=== PATIENT | female | born 1940 | race Caucasian/White ===

== ENCOUNTER 2016-06-22 07:44 | Outpatient (CLI) | payer MEDICARE, OTHER | END 2016-06-22 07:45 | disposition home or self-care (01) | DX: I10 Essential (primary) hypertension (principal) ==

== ENCOUNTER 2016-06-29 16:20 | Outpatient (CLI) | payer MEDICARE, OTHER | END 2016-06-29 16:21 | disposition home or self-care (01) | DX: M05.9 Rheumatoid arthritis with rheumatoid factor, unspecified (principal); M15.9 Polyosteoarthritis, unspecified ==

== ENCOUNTER 2016-10-28 10:32 | Outpatient (CLI) | payer MEDICARE, OTHER ==
--- NOTE | 2016-10-28 13:02 | XRAY Report ---
THREE-VIEW RIGHT ANKLE: 10/28/2016 CLINICAL INDICATION: Rheumatoid arthritis. FINDINGS: AP, oblique, lateral views of the right ankle demonstrate no evidence of fracture or dislo cation. The joint spaces are preserved. No radiopaque foreign body is seen in the soft tissues. IMPRESSION: NORMAL RIGHT ANKLE. JOB #: [id number] EXT JOB #:[id number]
--- NOTE | 2016-10-28 13:05 | XRAY Report ---
THREE VIEW LEFT ANKLE: 10/28/2016 CLINICAL INDICATION: Rheumatoid arthritis. FINDINGS: AP, lateral, and oblique views of the left ankle demonstrate severe arthritic changes of t he tibiotalar joint, with complete collapse of the joint space and talar remodeling. Plantar and post erior calcaneal spurring is present. There is no evidence of acute fracture. IMPRESSION: SEVERE TIBIOTALAR ARTHRITIS. JOB #: [id number] EXT JOB #:[id number]
== END 2016-10-28 10:33 | disposition home or self-care (01) ==
LOC: DI.N 10:32
PROVIDERS: ATTEND Physician Assistant Medical
DX: M19.072 Primary osteoarthritis, left ankle and foot (principal); M05.9 Rheumatoid arthritis with rheumatoid factor, unspecified

== ENCOUNTER 2017-01-12 15:35 | Outpatient (CLI) | payer MEDICARE, OTHER ==
[2017-01-12 14:08] LABS: CREATININE 0.6 mg/dL (0.4-1.0); POTASSIUM 3.7 mmol/L (3.5-5.0)
== END 2017-01-12 15:36 | disposition home or self-care (01) ==
LOC: LAB.N 15:35
PROVIDERS: ATTEND Family Medicine
DX: I10 Essential (primary) hypertension (principal)
CPT/HCPCS: 36415; 80048

== ENCOUNTER 2017-07-11 08:38 | Outpatient (CLI) | payer MEDICARE, OTHER ==
--- NOTE | 2017-07-11 11:24 | XRAY Report ---
THREE VIEW LUMBAR SPINE: 07/11/2017 CLINICAL INDICATION: Back pain. FINDINGS: AP, lateral, coned down views of the lumbar spine demonstrate moderate degenerative disk and facet disease, with degenerative dextroscoliosis. There is no evidence of compression fracture. The bowel gas pattern is unremarkable. IMPRESSION: MODERATE DEGENERATIVE DISK AND FACET DISEASE, WITH DEGENERATIVE DEXTROSCOLIOSIS. TD: 07/11/2017 11:23
== END 2017-07-11 08:39 | disposition home or self-care (01) ==
LOC: DI.N 08:38
PROVIDERS: ATTEND Family Medicine
DX: M51.36 Other intervertebral disc degeneration, lumbar region (principal); M47.896 Other spondylosis, lumbar region; M41.56 Other secondary scoliosis, lumbar region
CPT/HCPCS: 72100

== ENCOUNTER 2017-08-08 08:00 | Outpatient (CLI) | payer MEDICARE, OTHER ==
[2017-08-08 19:26] LABS: CALCIUM 8.6 mg/dL (8.5-10.3); CREATININE 0.5 mg/dL (0.4-1.0)
== END 2017-08-08 08:01 ==
LOC: LAB.N 08:00
PROVIDERS: ATTEND Family Medicine
DX: I10 Essential (primary) hypertension (principal)
CPT/HCPCS: 36415; 80048

== ENCOUNTER 2017-09-05 08:00 | Outpatient (CLI) | payer MEDICARE, OTHER ==
[2017-09-05 13:11] LABS: BASOPHILS % (AUTO) 0.6 %; EOSINOPHILS # (AUTO) 0.3 10^3/uL (0.0-0.7); EOSINOPHILS % (AUTO) 4.1 %; HGB - HEMOGLOBIN 13.2 g/dL (12.0-16.0); LYMPHOCYTES # (AUTO) 0.7 10^3/uL (1.5-3.5); LYMPHOCYTES % (AUTO) 10.4 %; MEAN CORPUSCULAR HEMOGLOBIN 28.4 pg (27.0-31.0); MEAN CORPUSCULAR HGB CONC 32.8 g/dL (32.0-36.0); MEAN CORPUSCULAR VOLUME 86.7 fL (81.0-99.0); MEAN PLATELET VOLUME 8.2 fL (7.9-10.8); MONOCYTES # (AUTO) 0.6 10^3/uL (0.0-1.0); NEUTROPHILS # (AUTO) 5.4 10^3/uL (1.5-6.6); NEUTROPHILS % (AUTO) 76.9 %; PLT - PLATELET COUNT 219 10^3/uL (130-450); RED BLOOD COUNT 4.66 10^6/uL (4.20-5.40); RED CELL DISTRIBUTION WIDTH 15.2 % (12.0-15.0); WHITE BLOOD COUNT 7.1 x10^3/uL (4.8-10.8)
[2017-09-05 13:25] LABS: CALCIUM 8.8 mg/dL (8.5-10.3); CREATININE 0.4 mg/dL (0.4-1.0)
[2017-09-05 19:49] LABS: HEMOGLOBIN A1C 0.52 g/dL; HEMOGLOBIN A1C % 5.3 % (4.6-6.2)
== END 2017-09-05 08:01 | disposition home or self-care (01) ==
LOC: LAB.N 08:00
PROVIDERS: ATTEND Family Medicine
DX: Z01.812 Encounter for preprocedural laboratory examination (principal); D64.9 Anemia, unspecified; R73.9 Hyperglycemia, unspecified
CPT/HCPCS: 36415; 80048; 82728; 83036; 84466; 85025

== ENCOUNTER 2017-11-17 10:45 | Outpatient (CLI) | payer MEDICARE, OTHER ==
[2017-11-17 12:48] LABS: BASOPHILS # (AUTO) 0.2 10^3/uL (0.0-0.1); BASOPHILS % (AUTO) 3.1 %; EOSINOPHILS # (AUTO) 0.3 10^3/uL (0.0-0.7); EOSINOPHILS % (AUTO) 6.7 %; HGB - HEMOGLOBIN 12.9 g/dL (12.0-16.0); LYMPHOCYTES # (AUTO) 0.8 10^3/uL (1.5-3.5); LYMPHOCYTES % (AUTO) 14.8 %; MEAN CORPUSCULAR HEMOGLOBIN 29.1 pg (27.0-31.0); MEAN CORPUSCULAR HGB CONC 32.9 g/dL (32.0-36.0); MEAN CORPUSCULAR VOLUME 88.6 fL (81.0-99.0); MEAN PLATELET VOLUME 8.2 fL (7.9-10.8); MONOCYTES # (AUTO) 0.6 10^3/uL (0.0-1.0); MONOCYTES % (AUTO) 10.8 %; NEUTROPHILS # (AUTO) 3.4 10^3/uL (1.5-6.6); NEUTROPHILS % (AUTO) 64.6 %; PLT - PLATELET COUNT 232 10^3/uL (130-450); RED BLOOD COUNT 4.43 10^6/uL (4.20-5.40); RED CELL DISTRIBUTION WIDTH 14.9 % (12.0-15.0); WHITE BLOOD COUNT 5.2 x10^3/uL (4.8-10.8)
[2017-11-17 12:51] LABS: CREATININE 0.6 mg/dL (0.4-1.0)
== END 2017-11-17 10:46 | disposition home or self-care (01) ==
LOC: LAB.N 10:45
PROVIDERS: ATTEND Orthopaedic Surgery Orthopaedic Surgery of the Spine
DX: M47.26 Other spondylosis with radiculopathy, lumbar region (principal)
CPT/HCPCS: 36415; 80048; 85025

== ENCOUNTER 2018-07-26 15:11 | Outpatient (CLI) | payer MEDICARE, OTHER ==
--- NOTE | 2018-07-26 16:13 | XRAY Report ---
Reason: wheezing Procedure Date: 07/26/2018 Accession Number: [id number] / [id number] Procedure: XRN - Chest 2 View X-Ray CPT Code: 91271 FULL RESULT: EXAM: CHEST RADIOGRAPHY EXAM DATE: 07/26/2018 03:24 PM. CLINICAL HISTORY: Wheezing. COMPARISON: 10/06/2010 2:07 PM. TECHNIQUE: 2 views. FINDINGS: Lungs/Pleura: There is thickening of bronchial airways. No focal opacities evident. No pleural effusion. No pneumothorax. Mild flattening of diaphragms. Mediastinum: Cardiomediastinal silhouette is again demonstrated to be mildly enlarged with tortuous aorta, stable. Other: None. IMPRESSION: Bilateral airway thickening can be seen in the setting of bronchiolitis or reactive airways disease. No focal lung parenchymal consolidation identified to suggest superimposed pneumonia. [facility]
== END 2018-07-26 15:12 | disposition home or self-care (01) ==
LOC: DI.N 15:11
PROVIDERS: ATTEND Family Medicine
DX: R06.2 Wheezing (principal)
CPT/HCPCS: 71046

== ENCOUNTER 2019-02-06 10:14 | Outpatient (CLI) | payer MEDICARE, OTHER ==
[2019-02-06 12:45] LABS: BUN - BLOOD UREA NITROGEN 14 mg/dL (6-20); CALCIUM 8.8 mg/dL (8.5-10.3); CARBON DIOXIDE - CO2 26 mmol/L (21-32); CHLORIDE 108 mmol/L (101-111); CHOL/HDL RATIO 3.5 (<4.4); CHOLESTEROL 174 mg/dL; CREATININE 0.6 mg/dL (0.4-1.0); GFR - MDRD 97 (>89); GLUCOSE 100 mg/dL (70-100); HDL CHOLESTEROL 50 mg/dL; LDL CHOLESTEROL,CALCULATED 92 mg/dL; LDL/HDL RATIO 1.8 (<4.4); SODIUM 140 mmol/L (135-145); VLDL CHOLESTEROL 32 mg/dL
== END 2019-02-06 23:59 | disposition home or self-care (01) ==
LOC: LAB.N 10:14
PROVIDERS: ATTEND Internal Medicine Cardiovascular Disease
DX: I25.10 Atherosclerotic heart disease of native coronary artery without angina pectoris (principal); I25.84 Coronary atherosclerosis due to calcified coronary lesion; I10 Essential (primary) hypertension
CPT/HCPCS: 36415; 80048; 80061; 83721

== ENCOUNTER 2020-02-29 09:32 | Outpatient (CLI) | payer MEDICARE, OTHER | END 2020-02-29 09:33 | disposition E | LOC: EMS 09:32 | PROVIDERS: ATTEND Surgery | DX: R09.2 Respiratory arrest (principal) | CPT/HCPCS: A0425; A0429 ==